=== PATIENT | male | born 2000 | race American Indian/Alaskan Native ===

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

== ENCOUNTER 2022-01-31 19:52 | Emergency (ER) | payer SELFPAY ==
[2022-01-31] MEDS ORDERED: IBUPROFEN 800 MG TAB PO ONE (23:37)
--- NOTE | 2022-02-01 00:33 | XRay Report ---
CHEST 2 VIEWS INDICATION / CLINICAL INFORMATION: cough fever hx asthma. COMPARISON: None available. FINDINGS: SUPPORT DEVICES: None. HEART / MEDIASTINUM: No significant abnormality. LUNGS / PLEURA: No significant pulmonary or pleural abnormality. No pneumothorax. ADDITIONAL FINDINGS: None IMPRESSION: 1. No acute chest process. Signer Name: Les Raphael MD Signed: 02/01/2022 12:28 AM Workstation Name: [email or web address]
--- NOTE | 2022-02-01 00:52 | Emergency Department Report ---
ED General Adult HPI - General Chief complaint: Upper Respiratory Infection Stated complaint: CHEST CONGESTION/RUNNING NOSE Time Seen by Provider: 01/31/22 23:37 Source: patient Mode of arrival: Ambulatory Limitations: No Limitations - History of Present Illness Initial comments: Patient 21-year-old male with history of asthma who presents for chest russ estion and runny nose x3 days. Patient denies fevers or chills. Rates symptoms as moderate for asthma. There is no audible wheezing at this time. Patient denies chest pain no dizziness or lightheadedness. Symptoms are exacerbated by activity. Symptoms are relieved by nothing tried. Severity scale (0 -10): 7 - Related Data Previous Rx's Medication Instructions Recorded Last Taken Type Ibuprofen [Motrin] 600 mg PO Q8H PRN #15 tablet 09/25/16 Unknown Rx Neomy/Polymyx B/Hc Otic Susp 4 drops OTIC TID #1 bottle 09/25/16 Unknown Rx [Cortisporin (Otic) Susp] Albuterol Mdi (or & Nicu Only) 2 puff IH QID PRN #8.5 gram 02/01/22 Unknown Rx [ProAir HFA Inhaler] Ibuprofen [Motrin 800 MG tab] 800 mg PO Q8HR PRN #30 tablet 02/01/22 Unknown Rx predniSONE [Deltasone] 20 mg PO QDAY 5 Days #5 tab 02/01/22 Unknown Rx Allergies Allergy/AdvReac Type Severity Reaction Status Date / Time No Known Allergies Allergy Unverified 09/25/16 04:54 ED Review of Systems ROS: Stated complaint: CHEST CONGESTION/RUNNING NOSE Other details as noted in HPI Constitutional: denies: chills, fever Eyes: denies: eye pain, eye discharge, vision change ENT: congestion Respiratory: cough, wheezing. denies: shortness of breath Cardiovascular: denies: chest pain, palpitations Endocrine: no symptoms reported Gastrointestinal: denies: abdominal pain, nausea, diarrhea Genitourinary: denies: urgency, dysuria Musculoskeletal: denies: back pain, joint swelling, arthralgia Skin: denies: rash, lesions Neurological: denies: headache, weakness, paresthesias, vertigo Psychiatric: denies: anxiety, depression Hematological/Lymphatic: denies: easy bleeding, easy bruising ED Past Medical Hx - Past Medical History Hx Asthma: Yes - Social History Smoking Status: Never Smoker Substance Use Type: None - Medications Home Medications: Home Medications Medication Instructions Recorded Confirmed Last Taken Type Ibuprofen [Motrin] 600 mg PO Q8H PRN #15 tablet 09/25/16 Unknown Rx Neomy/Polymyx B/Hc Otic Susp 4 drops OTIC TID #1 bottle 09/25/16 Unknown Rx [Cortisporin (Otic) Susp] Albuterol Mdi (or & Nicu Only) 2 puff IH QID PRN #8.5 gram 02/01/22 Unknown Rx [ProAir HFA Inhaler] Ibuprofen [Motrin 800 MG tab] 800 mg PO Q8HR PRN #30 tablet 02/01/22 Unknown Rx predniSONE [Deltasone] 20 mg PO QDAY 5 Days #5 tab 02/01/22 Unknown Rx ED Physical Exam - General Limitations: No Limitations General appearance: alert, in no apparent distress - Head Head exam: Present: normocephalic, normal inspection - Eye Eye exam: Present: PERRL, EOMI Pupils: Present: normal accommodation - ENT ENT exam: Present: normal orophraynx, mucous membranes moist - Neck Neck exam: Present: normal inspection, full ROM. Absent: tenderness, lymphadenopathy - Respiratory Respiratory exam: Present: normal lung sounds bilaterally, chest wall tenderness (2DRight anterior lateral chest wall painto palpation. No crepitus no step-off no ecchymosis no swelling pain is reproducible to deep palpation). Absent: respiratory distress, wheezes, rales, rhonchi, stridor, accessory muscle use, decreased breath sounds, prolonged expiratory - Cardiovascular Cardiovascular Exam: Present: regular rate, normal rhythm, normal heart sounds. Absent: systolic murmur, diastolic murmur, rubs, gallop - GI/Abdominal GI/Abdominal exam: Present: soft, distended, normal bowel sounds. Absent: tenderness, guarding, rebound, rigid - Rectal Rectal exam: Present: deferred - Extremities Exam Extremities exam: Present: normal inspection, full ROM, normal capillary refill. Absent: tenderness - Back Exam Back exam: Present: normal inspection, full ROM. Absent: CVA tenderness (R), CVA tenderness (L) - Neurological Exam Neurological exam: Present: alert, oriented X3, CN II-XII intact, normal gait - Expanded Neurological Exam Expanded Patient oriented to: Present: person, place, time Speech: Present: fluid speech Motor strength exam: RUE: 5, LUE: 5, RLE: 5, LLE: 5 Best Eye Response ([place]): (4) open spontaneously Best Motor Response ([place]): (6) obeys commands Best Verbal Response ([place]): (5) oriented [place] Total: 15 - Psychiatric Psychiatric exam: Present: normal affect, normal mood - Skin Skin exam: Present: warm, dry, intact, normal color. Absent: rash ED Course Vital Signs 01/31/22 19:58 Temperature 99.3 F Pulse Rate 68 Respiratory 18 Rate Blood Pressure 142/85 [Right] O2 Sat by Pulse 100 Oximetry ED Medical Decision Making - Radiology Data Radiology results: report reviewed, image reviewed CHEST 2 VIEWS INDICATION / CLINICAL INFORMATION: cough fever hx asthma. COMPARISON: None available. FINDINGS: SUPPORT DEVICES: None. HEART / MEDIASTINUM: No significant abnormality. LUNGS / PLEURA: No significant pulmonary or pleural abnormality. No pneumothorax. ADDITIONAL FINDINGS: None IMPRESSION: 1. No acute chest process. Signer Name: Zoraida Curiel MD Signed: 02/01/2022 12:28 AM Workstation Name: [id number] Transcribed By: Dictated By: ZORAIDA CURIEL MD Electronically Authenticated By: ZORAIDA CURIEL MD Signed Date/Time: 02/01/2227 DD/ TD/TT: - Medical Decision Making Chest x-ray no infiltrates no opacities, plan DC to home, take medications as prescribed, follow-up with your primary care doctor in 2 to 3 days. Return to emergency department should symptoms worsen. Patient verbalized agreement and understanding of discharge plan. Patient DC'd home in stable condition at this time Critical care attestation.: If time is entered above; I have spent that time in minutes in the direct care of this critically ill patient, excluding procedure time. ED Disposition Clinical Impression: History of asthma URI (upper respiratory infection) Qualifiers: URI type: unspecified viral URI Qualified Code(s): J06.9 - Acute upper respiratory infection, unspecified Disposition: HOME / SELF CARE / HOMELESS Is pt being admited?: No Does the pt Need Aspirin: No Condition: Stable Instructions: Viral Respiratory Infection, Uulm-[id number]-Pvxa Additional Instructions: Take medications as prescribed. Follow-up with your doctor in 2 to 3 days. Return to emergency department should symptoms worsen. Prescriptions: predniSONE [Deltasone] 20 mg PO QDAY 5 Days #5 tab Ibuprofen [Motrin 800 MG tab] 800 mg PO Q8HR PRN #30 tablet PRN Reason: Pain Albuterol Mdi (or & Nicu Only) [ProAir HFA Inhaler] 2 puff IH QID PRN #8.5 gram PRN Reason: Shortness Of Breath Referrals: CLARA PA MD [Staff Physician] - 3-5 Days Forms: Work/School Release Form(ED) Time of Disposition: 00:56
[2022-02-01 02:15] VITALS: BP 133/82
== END 2022-02-01 02:15 | disposition home or self-care (01) ==
LOC: ED 19:52
DX: J06.9 Acute upper respiratory infection, unspecified (principal); J45.909 Unspecified asthma, uncomplicated
CPT/HCPCS: 71046; 99283